=== PATIENT | male | born 1990 | race African-American/Black ===

== ENCOUNTER 2016-05-28 15:27 | Emergency (ER) | payer BC, OTHER ==
[~2016-05-28] VITALS: Ht 170.2 cm; Wt 64.0 kg
[2016-05-28 15:41] VITALS: BP 111/67
== END 2016-05-28 23:51 | disposition left against medical advice (07) ==
LOC: ER 15:27
DX: Z53.21 Procedure and treatment not carried out due to patient leaving prior to being seen by health care provider (principal)